=== PATIENT | female | born 1965 | race Caucasian/White ===

== ENCOUNTER → 2016-11-27 | Day surgery (SDC) | payer OTHER ==
[~2016-11-27] MED LIST: FERRO-TIME325 MG PO; PRILOSEC; ZANTAC300 MG PO
--- NOTE | ~2016-11-27 | OR ---
Unit #: [id number] #: [id number] Patient: NATE FIERRO [id number] [address] [place], [place] [address] [id number] O MR#: [id number] NAME: NATE FIERRO ROOM: Date of Procedure: 11/27/2016 Admission Date: 11/27/2016 Surgeon: Isael Armstrong M.D. : 1965 Attending Physician: Isael Armstrong M.D. Referring Physician: Isael Armstrong M.D. Primary Care Physician: Alex Dobbs M.D. OPERATIVE REPORT PRIMARY CARE PHYSICIAN Alex Dobbs M.D. PREOPERATIVE DIAGNOSES The patient has presented with history of gastroesophageal reflux. She does take twice a day PPI therapy, but still complains bitterly of heartburn. The purpose of the upper endoscopy is to look for any concomitant condition such as erosive esophagitis or Macias esophagus. PROCEDURES PERFORMED Upper gastrointestinal endoscopy and biopsy. POSTOPERATIVE DIAGNOSES The entire esophagus was normal. The patient did have a small hiatus hernia and mild prepyloric antral erosive gastritis. Otherwise, examination was normal up to third part of duodenum. Biopsies were obtained from the antrum for CLOtest. RECOMMENDATIONS The patient will be followed up in the office in 8 to 10 weeks' time. SEDATION USED MAC. DESCRIPTION OF PROCEDURE Following detailed explanation of potential risks and complications of an upper endoscopy, namely perforation, bleeding, and complications related to sedation, the patient was brought to GI lab and laid in the left lateral decubitus position. Lubricated tip of the Olympus video upper endoscope was passed through the bite block into the proximal esophagus under direct vision. The entire esophageal mucosa was examined and appeared normal. Z-line was nicely demarcated, there being no esophagitis. The patient did have a small hiatus hernia. The scope was then advanced into the gastric cavity and the latter was insufflated. Mucosa of the fundus, body, and antrum was examined and mild prepyloric antral erythema erythematous streaks and erosions noted indicating antral gastritis. Pylorus was intubated with visualization of the normal duodenal bulb and second and third part of duodenum. Upon withdrawal and retroflexion, incisura, cardia, and greater curve was examined and no additional findings were noted. A biopsy was obtained from the antrum for CLOtest. The scope was then withdrawn in the distal esophagus. The entire esophageal mucosa was examined all the way up to pharynx. No Unit #: [id number] #: [id number] Patient: NATE FIERRO additional findings were noted. The patient tolerated the procedure without any postprocedure complications. Dictated by... Pauline Garcia/salvador TD: 11/27/2016 22:51 JOB #: [id number] CC: Alex Dobbs M.D. OPERATIVE REPORT Page 1 of 1 X Isael Armstrong MD X PROCEDURE OPERATIVE NOTE
== END | disposition home or self-care (01) ==
LOC: COPS 10:49
DX: K44.9 Diaphragmatic hernia without obstruction or gangrene (principal); K21.9 Gastro-esophageal reflux disease without esophagitis; K29.60 Other gastritis without bleeding; F17.200 Nicotine dependence, unspecified, uncomplicated
CPT/HCPCS: 84703; 87077

== ENCOUNTER 2016-12-29 15:48 | Emergency (ER) | payer OTHER | END 2016-12-29 17:23 | disposition home or self-care (01) | LOC: CFTX 15:48 → CED 15:48 → CFTX 17:23 | DX: S23.3XXA Sprain of ligaments of thoracic spine, initial encounter (principal); S33.5XXA Sprain of ligaments of lumbar spine, initial encounter; K21.9 Gastro-esophageal reflux disease without esophagitis; F17.210 Nicotine dependence, cigarettes, uncomplicated; Z88.8 Allergy status to other drugs, medicaments and biological substances; V49.40XA Driver injured in collision with unspecified motor vehicles in traffic accident, initial encounter; Y92.488 Other paved roadways as the place of occurrence of the external cause | CPT/HCPCS: 99283 ==